=== PATIENT | female | born 2000 | race Caucasian/White ===

== ENCOUNTER 2024-09-20 20:42 | Emergency (ER) | payer MEDICAID, SELFPAY ==
[2024-09-20 20:42] VITALS: BMI 22.4
[2024-09-20 21:00] VITALS: BP 118/81; PULSE 70; RESP 18; TEMP 36.6; O2SAT 99
--- NOTE | 2024-09-20 21:07 | PD.EDVAGBL ---
ED OB Contraction Preg RMI/HPI General Chief complaint: Vaginal Bleeding Stated complaint: 4 WKS PREG VAG BLEEDING Time Seen by Provider: 09/20/24 20:49 Source: patient Arrival date/time: 09/20/24 20:42 23-year-old female A1 approximately 12 weeks presents emergency department complaining of vaginal spotting that started yesterday. Patient Nu[place] any fever, chills, back pain, or any other associated symptom. Mode of arrival: ambulatory Limitations: no limitations Related Data : 3 Para: 1 Ab: 1 Previous Rx's ?Medication ?Instructions ?Recorded docusate sodium 50 mg capsule 50 mg PO QDAY #30 caps 08/29/22 (Colace Clear) ondansetron HCl 4 mg tablet 4 mg PO TID PRN nausea and 08/29/22 vomiting #20 tabs hydrocodone 7.5 mg-acetaminophen 1 tab PO Q6H PRN pain #20 tabs 04/10/23 325 mg tablet Allergies Allergy/AdvReac Type Severity Reaction Status Date / Time No Known Allergies Allergy Verified 08/07/22 23:45 Review of Systems Review of Systems Systems Reviewed: All systems reviewed, normal except as documented Constitutional Constitutional: Reports system reviewed and no additional complaints, except as documented, Denies body ache(s), Denies chills and Denies fever(s) Eyes Eyes: Reports system reviewed and no additional complaints, except as documented and Denies change in vision ENT Ears, Nose, Mouth, and Throat: Reports system reviewed and no additional complaints, except as documented, Denies disequilibrium, Denies dizziness, Denies sore throat and Denies vertigo Cardiovascular Cardiovascular: Reports system reviewed and no additional complaints, except as documented, Denies chest pain and Denies dyspnea Respiratory Respiratory: Reports system reviewed and no additional complaints, except as documented, Denies chest congestion, Denies cough and Denies dyspnea Gastrointestinal Gastrointestinal: Reports system reviewed and no additional complaints, except as documented, Denies abdominal pain, Denies nausea and Denies vomiting Genitourinary Genitourinary: Reports abnormal vaginal bleeding Musculoskeletal Musculoskeletal: Reports system reviewed and no additional complaints, except as documented, Denies abnormal gait and Denies arthralgias Integumentary/Breasts Skin/Breast: Reports system reviewed and no additional complaints, except as documented, Denies erythema, Denies rash and Denies wounds Neurologic Neurologic: Reports system reviewed and no additional complaints, except as documented, Denies abnormal gait, Denies disequilibrium, Denies dizziness and Denies vertigo Past Medical History Past Medical History CARDIAC: Negative Cardiac Disorders or Congestive Heart Failure RESPIRATORY: Negative Chronic Obstructive Pulmonary Disease (COPD) or Asthma GENITOURINARY: Negative Renal Disease ENDOCRINE: Negative Diabetes Mellitus Type 1 or Diabetes Mellitus Type 2 HEMATOLOGIC: Negative Sickle Cell Disease Social History SMOKING STATUS: Never smoker ED Exam General Limitations: Present no limitations General appearance: Present alert and in no apparent distress Head Head exam: Present atraumatic Eye Eye exam: Present normal appearance, PERRL and EOMI ENT ENT exam: Present normal exam, normal oropharynx and mucous membranes moist Neck Neck exam: Present normal inspection, full ROM and trachea midline Chest Chest inspection: Present normal inspection and symmetric chest wall rise Respiratory Respiratory exam: Present normal lung sounds bilaterally Cardiovascular Cardiovascular exam: Present regular rate, normal rhythm and normal heart sounds Abdominal Exam Abdominal exam: Present soft and normal bowel sounds; Absent tenderness, guarding or rebound Extremities Exam Extremities exam: Present normal inspection and full ROM Back Exam Back exam: Present normal inspection and full ROM Neurological Exam Neurological exam: Present alert, oriented X3 and CN II-XII intact Psychiatric Psychiatric exam: Present normal affect and normal mood Skin Skin exam: Present warm, dry, intact and normal color Course Quality Measures none Orders Category Date Time Status US OB <= 14 weeks fetus Stat Exams 09/21/24 00:05 Taken ABO/RH Type Stat Lab 09/20/24 21:12 Completed Beta HCG,Quantitative Stat Lab 09/20/24 21:12 Completed CBC Stat Lab 09/20/24 21:12 Completed CMP [Comprehensive Metabolic Panel] Stat Lab 09/20/24 21:12 Completed Urinalysis, C/S if Indicated Stat Lab 09/20/24 21:26 Completed Vital Signs Vital signs: Vital Signs Temperature 98 F 09/20/24 21:00 Pulse Rate 70 09/20/24 21:00 Respiratory Rate 18 09/20/24 21:00 Blood Pressure 118/81 09/20/24 21:00 Pulse Oximetry (%) 99 09/20/24 21:00 Oxygen Delivery Method Room Air 09/20/24 21:00 99% room air within normal limits Vaginal Bleeding MDM Narrative MDM Narrative: 23-year-old female A1 approximately 12 weeks presents emergency department complaining of vaginal spotting that started yesterday. Patient Nuys any fever, chills, back pain, or any other associated symptom. CBC was unremarkable for any leukocytosis. Stable hemoglobin 12.6. CMP was unremarkable. Beta-hCG 7268. Ultrasound findings intrauterine gestation with single fetus mean gestational age 8 weeks and 6 days with no cardiac activity detected. Patient appears nontoxic and is hemodynamically stable. Patient instructed to have close follow-up with [facility] for repeat ultrasound and beta-hCG trend. Patient instructed to return to emergency department for any worsening symptoms or as needed. Patient data External records reviewed:: [facility] previous records Clinical information provided by:: patient Social determinants that could affect healthcare access:: none Patient has the following chronic illnesses:: None How is presenting disease/condition affected by chronic disease/condition?: no chronic disease Evaluation data The following diagnostics were reviewed and interpreted by me:: lab results and radiology exam(s) Lab and/or radiology exams considered but not ordered:: Ordered Interpretation Summary: Interpreted by me Medications / Prescriptions Medications or Prescriptions considered but not ordered:: N/A Medication administrations:: N/A Consultations Consultation(s) initiated? (list below): No Diagnosis Vaginal Bleeding Differential Diagnosis: missed , threatened , dysfunctional uterine bleeding, incomplete , ectopic without intrauterine and vaginal bleeding Most likely diagnosis given after review of the tests above:: Vaginal bleeding affecting early Admission Indicated Admission indicated?: not indicated Admission Request Was there a request for admission?: No Disposition Plan Disposition Plan: Discharge Discharge Attestation Discharge Attestation: The patient and all family members were given an opportunity to ask questions and understood the discharge instructions. Discharge instructions specifically effects, indications for sooner follow up or return to the emergency department, and the expected course of current diagnosis. Patient condition: Stable Discharge Plan Plan Patient Disposition: HOME (Self Care) Disposition Comment: Stable Prescriptions/Referrals Prescriptions/Med Rec: No Action ondansetron HCl 4 mg tablet 4 mg PO TID PRN (Reason: nausea and vomiting) Qty: 20 0RF Colace Clear 50 mg capsule 50 mg PO QDAY Qty: 30 0RF hydrocodone-acetaminophen 7.5-325 mg tablet 1 tab PO Q6H MDD 4 PRN (Reason: pain) Qty: 20 0RF Referrals: Temporary Provider,ED [Physician] - In 1 week Problem List Clinical Impression: Vaginal bleeding affecting early Patient/Caregiver Discharge Instructions Discharge Activity: activity as tolerated Education Materials: Bleeding During Early Additional Instructions: Pelvic rest. Drink plenty of fluids and stay hydrated. Follow-up with [facility] for repeat ultrasound and beta-hCG trend. Return to the emergency department for any worsening symptoms or as needed. Print Language: Kyrgyz Stand Alone Forms: Judith Award Info., Patient Portal Info Letter PA/COMPLIANCE TECHNICIAN Supervising Physician PA/COMPLIANCE TECHNICIAN Supervising Physician: Dr. Spann
[2024-09-20 21:32] LABS: Collection Type, Urine Clean Catch
[2024-09-20 21:33] LABS: Basophils % (Auto) 1 % (0-2.5); Eosinophils # (Auto) 0.1 Thou/mm3 (0.0-0.5); Eosinophils % (Auto) 1 % (0-10); Hemoglobin 12.6 g/dL (12.0-16.0); Immature Granulocytes % (Auto) 0 % (0-0); Immature Granulocytes Auto 0.01 Thou/mm3 (0.00-0.00); Lymphocytes % (Auto) 24 % (10-50); Mean Corpuscular HGB Conc 33.2 g/dl (31.0-37.0); Mean Corpuscular Hemoglobin 27.3 pg (25.0-35.0); Mean Corpuscular Volume 82 fL (80-100); Monocytes # (Auto) 0.5 Thou/mm3 (0.0-0.8); Monocytes % (Auto) 6 % (0-12); Neutrophils # (Auto) 5.8 Thou/mm3 (1.8-7.7); Neutrophils % (Auto) 69 % (37-80); Nucleated Red Blood Cell % 0 /100 WBC (0); Platelet Count 168 Thou/mm3 (140-440); RDW Standard Deviation 42.5 fL (36.4-46.3); Red Blood Count 4.61 Miln/mm3 (4.00-5.20); White Blood Count 8.4 Thou/mm3 (3.6-11.0)
[2024-09-20 21:42] LABS: Bacteria,Urine Rare; Bilirubin,Urine Negative (Negative); Blood,Urine 1+ (Negative); Clarity,Urine Clear (Clear/Hazy); Color,Urine Lt-Yellow (Lt Yel-Yel); Culture Indicated,Urine Not Indicated; Glucose, Urine Negative (Negative); Ketones,Urine Negative (Negative); Leukocyte Esterase,Urine Negative (Negative); Nitrite,Urine Negative (Negative); PH,Urine 6.5 (5.0-7.0); Protein,Urine Trace (Neg - Trace); RBC,Urine 2 /hpf (0-3); Specific Gravity,Urine 1.033 (1.001-1.035); Squamous Epithelial Cell,Urine 1 /hpf (0-5); WBC,Urine 1 /hpf (0-5)
[2024-09-20 22:06] LABS: Alanine Aminotransferase 8 U/L (10-49); Albumin, Serum 4.8 gm/dL (3.5-5.0); Albumin/Globulin Ratio 1.8 (1.2-2.2); Alkaline Phosphatase 63 U/L (46-116); Anion Gap 9 (7-16); Aspartate Amino Transferase 14 U/L (0-34); BUN/Creatinine Ratio 14 Ratio (12-20); Bilirubin,Total 0.4 mg/dL (0.3-1.2); Blood Urea Nitrogen 7 mg/dL (9-23); Calcium 10.3 mg/dL (8.3-10.6); Calcium (Corrected) 10.3 mg/dL (8.5-10.1); Chloride 105 mMol/L (98-107); Creatinine (Component) 0.5 mg/dL (0.6-1.3); Estimated Creatinine Clearance 124.6 mL/min (>60); Globulin 2.7 gm/dL (2.3-3.5); Glucose 90 mg/dL (74-106); Osmolality,Calculated 273 (275-295); Potassium 3.9 mMol/L (3.4-5.1); Sodium 138 mMol/L (136-145); Total Protein 7.5 gm/dL (5.7-8.2); eGFR > 60 See Note
[2024-09-20 22:17] LABS: Beta HCG,Quantitative 7269 mIU/mL (<5.0)
--- NOTE | 2024-09-21 00:05 | XR_ITS ---
Examination: Complete OB ultrasound, less than 14 weeks, transabdominal Date and time of exam: September 21, 2024 0033 hrs. Indications: Vaginal bleeding and pelvic cramping beginning 4 days ago Technique: Obstetrical ultrasound images less than 14 weeks performed via transabdominal imaging Findings: Uterus 10.9 x 6.9 x 8.1 cm Intrauterine gestation, pole 2.23 cm corresponds to 8 week 6 day gestational age No cardiac motion Right ovary 3.3 x 1.9 x 2.6 cm arterial flow Left ovary 3.0 x 1.5 x 2.4 cm arterial flow No fluid in the cul-de-sac Impression: demise
--- NOTE | 2024-09-21 01:15 | PRELIM_ITS ---
Obstetric ultrasound (transabdominal) with doppler and wave doppler spectral analysis. September 21 024 at 0033 hours Clinical history: Early viability.Technique: Real-time ultrasound w as performed using Duplex scanning including arterial inflow, venous outflow, color and spectral Dopp ler analysis of both ovaries.Comparison: No prior study is available for comparison. Findings:There i s an intrauterine gestation with a single fetus of mean gestational age 8 weeks and 6 days (CRL= 2.23 cm). cardiac activity is not detected. The uterus measures 8.1 x 10.9 x 6.9 cm.The right ovar y measures 3.3 x 1.9 x 2.6 cm and is unremarkable. The left ovary measures 3.0 x 1.5 x 2.4 cm and is unremarkable. Normal blood flow in the bilateral ovaries with normal wave Doppler spectral analysis.T here is no free fluid in the pelvis.Impression:Nonviable intrauterine .No evidence of ovaria n torsion.Discussion Details: Results verbally communicated to : Roney Garcia, Nurse Practitioner at 0 1:08 AM 09/21/2024 Report Electronically Signed By: Abdi Walsh 09/21/2024 1:15:13 AM [EST]
== END 2024-09-21 01:40 | disposition home or self-care (01) ==
PROVIDERS: Emergency Provider Emergency Medicine; PCP Family Medicine
DX: O20.9 Hemorrhage in early pregnancy, unspecified (principal); Z3A.12 12 weeks gestation of pregnancy
CPT/HCPCS: 36415; 76801; 80053; 81001; 84702; 85025; 86900; 86901; 99284